=== PATIENT | female | born 1955 | race Caucasian/White ===

== ENCOUNTER 2017-07-08 08:47 | Emergency (ER) | payer OTHER ==
[2017-07-08] MEDS ORDERED: ONDANSETRON HCL IV 4 MG/2 ML VIAL IV ONE (09:01)
[2017-07-08] MEDS ORDERED: 0.9 % SODIUM CHLORIDE 1,000 ML BAG IV ONE ×2 (09:01→09:43)
--- NOTE | 2017-07-08 09:05 | Emergency Department Record ---
History of Present Illness - General Chief complaint: Female Urogenital Problem Stated complaint: UTI, WEAK, NAUSEA Time Seen by Provider: 07/08/17 08:53 Source: Patient Mode of Arrival: Ambulatory Limitations: No limitations - History of Present Illness Initial comments: The patient is here due to a multitude of complaints. She has had weakness and a cough with nausea for 2 weeks. Now she feels like she has a UTI due to not urinating well for the last 3 days. Additionally she states she has a groin yeast infection. There is no reported fever, chills, back pain, sputum production, or diarrhea but she has had minimal vomiting. MD Complaint: Other Onset/Timin -: Week(s) Improves with: None Worsens with: None Patient : No Associated Symptoms: Dysuria, Loss of appetite, Nausea/vomiting - Related Data Home Medications Medication Instructions Recorded Confirmed Last Taken Amlodipine Besylate 5 mg PO DAILY 07/08/17 07/08/17 Unknown Calcium Carbonate/Vitamin D3 2 each PO DAILY 07/08/17 07/08/17 Unknown [Calcium 600 + Vit D Tablet] Cholecalciferol (Vitamin D3) 50,000 unit PO ASDIR 07/08/17 07/08/17 Unknown [Vitamin D] Diclofenac Sodium [Pennsaid] 2 gm TP DAILY 07/08/17 07/08/17 Unknown Duloxetine HCl [Cymbalta] 30 mg PO DAILY 07/08/17 07/08/17 Unknown Golimumab [Simponi] 50 mg SQ ASDIR 07/08/17 07/08/17 Unknown Latanoprost 0.005% Opth Jo 2.5 ml OP ASDIR 07/08/17 07/08/17 Unknown [Xalatan] Leflunomide [Arava] 20 mg PO DAILY 07/08/17 07/08/17 Unknown Lisinopril 40 mg PO DAILY 07/08/17 07/08/17 Unknown Melatonin 10 mg PO QHS 07/08/17 07/08/17 Unknown Metoprolol Tartrate 50 mg PO BID 07/08/17 07/08/17 Unknown Prednisone [Prednisone 10Mg] 10 mg PO DAILY 07/08/17 07/08/17 Unknown Zoledronic Acid/Mannitol&Water 5 mg IV ASDIR 07/08/17 07/08/17 Unknown [Reclast] Allergies Allergy/AdvReac Type Severity Reaction Status Date / Time codeine Allergy breaks out Verified 07/08/17 08:53 and itching Penicillins Allergy breaks out Verified 07/08/17 08:53 and itching egg AdvReac stomach Verified 07/08/17 08:53 pains Travel Screening - Travel/Exposure Within Last 30 Days Have you traveled within the last 30 days?: No Review of Systems Constitutional: Reports: Malaise. Denies: Chills, Fever Eyes: Denies: Eye discharge ENT: Reports: Congestion Respiratory: Reports: Cough. Denies: Dyspnea Past Medical History - SOCIAL HISTORY Smoking Status: Former smoker Alcohol Use: None Drug Use: None - RESPIRATORY Hx Respiratory Disorders: No - CARDIOVASCULAR Hx Cardio Disorders: Yes Hx Hypertension: Yes - NEURO Hx Neuro Disorders: No - GI Hx GI Disorders: No - Hx Genitourinary Disorders: No - ENDOCRINE Hx Endocrine Disorders: No - MUSCULOSKELETAL Hx Musculoskeletal Disorders: Yes Comment:: RA - PSYCH Hx Psych Problems: Yes Hx Depression: Yes - HEMATOLOGY/ONCOLOGY Hx Hematology/Oncology Disorders: No Family Medical History Any Significant Family History?: No Physical Exam - General General Appearance: Alert, Oriented x3, Cooperative, No acute distress - Head Head exam: Atraumatic, Normocephalic, Normal inspection - Eye Eye exam: Normal appearance, PERRL - ENT Throat exam: Normal inspection. negative: Tonsillar erythema, Tonsillar exudate - Neck Neck exam: Normal inspection, Full ROM. negative: Tenderness - Respiratory Respiratory exam: Normal lung sounds bilaterally. negative: Respiratory distress - Cardiovascular Cardiovascular Exam: Regular rate, Normal rhythm, Normal heart sounds - GI/Abdominal GI/Abdominal exam: Soft, Normal bowel sounds. negative: Tenderness - exam: Other (There is a significant yeast dermatitis to the intertriginous folds in the groin and under the pannus.) - Extremities Extremities exam: Normal inspection, Full ROM, Normal capillary refill. negative: Tenderness - Neurological Neurological exam: Alert, Normal gait. negative: Abnormal gait, Motor sensory deficit Course Vital Signs 07/08/17 08:49 Temperature 97.4 F L Pulse Rate 110 H Respiratory 20 Rate Blood Pressure 109/59 Pulse Ox 96 - Reevaluation(s) Reevaluation #1: The patient is doing OK at this time. I did discuss the lab work with her and the problems with the kidney function. Due to the fact she is in renal failure she will need a larger hospital so she chose [facility]. I then did discuss the case with Dr. Vance and he did accept the patient. 07/08/17 10:33 Medical Decision Making - Data Complexity MDM Data: Labs Ordered and/or Reviewed, X-Ray Ordered and/or Reviewed, EKG Ordered and/or Reviewed - Lab Data Result diagrams: 07/08/17 09:10 07/08/17 09:10 - EKG Data -: EKG Interpreted by Me EKG: No Acute Changes - Radiology Data Radiology results: Report reviewed (CXR: Prob mild L lingula infiltrate.) Disposition Disposition: Transfer Disposition: Acute Care Hospital Transfer Transfer To: [facility] Reason For Transfer: Renal Failure Accepting Physician: Pinky Time Discussed w/Accepting Physician: 10:36 Condition: (2) Stable Forms: Patient Portal Access Time of Disposition: 10:36 Quality - Quality Measures Quality Measures: N/A - Blood Pressure Screening View Details: Yes Does Patient Have Any of the Following: No Blood Pressure Classification: Normal BP Reading Systolic Measurement: 109 Diastolic Measurement: 59 Screening for High Blood Pressure: < Normal BP, F/U Not Required > [[id number]]
[2017-07-08 09:24] LABS: HEMATOCRIT 36.7 % (35.0-47.0); HEMOGLOBIN 12.6 gm/dl (11.6-16.0); MEAN CELL VOLUME 88.2 fl (81-97); MEAN CORPUSCULAR HEMOGLOBIN 30.3 pg (27-33); MEAN CORPUSCULAR HGB CONC 34.3 g/dl (32-36); MEAN PLATELET VOLUME 10.7 fl (7.4-10.4); PLATELET COUNT 232 K/uL (130-400); RED BLOOD COUNT 4.16 M/uL (3.80-5.40); RED CELL DISTRIBUTION WIDTH 14.9 % (11.5-14.5); WHITE BLOOD COUNT W/O DIFF 10.3 K/uL (4.2-12.2)
[2017-07-08 09:35] LABS: PLATELET ESTIMATE NORMAL (NORMAL)
[2017-07-08 09:44] LABS: ALBUMIN 3.6 g/dL (4.0-5.0); BILIRUBIN,DIRECT 0.4 mg/dL (0-0.3); BILIRUBIN,TOTAL 0.6 mg/dL (0.2-1.0); CREATININE 15.6 mg/dL (0.5-0.9); TOTAL PROTEIN 7.7 g/dL (6.6-8.7)
[2017-07-08] MEDS ORDERED: AZITHROMYCIN 500 MG in 0.9 % SODIUM CHLORIDE 250ML 250 ML IVPB ONE (10:05)
[2017-07-08] MEDS ORDERED: NYSTATIN 15 GM TUBE TOP PRN (10:35)
[2017-07-08 10:50] LABS: INFLUENZA A NEGATIVE (NEGATIVE); INFLUENZA B NEGATIVE (NEGATIVE)
[2017-07-08] MEDS ORDERED: 0.9 % SODIUM CHLORIDE 1000ML 1,000 ML IV ONE (11:29)
--- NOTE | 2017-07-09 08:23 | RADIOLOGY REPORT ---
EXAM: CHEST, TWO VIEWS HISTORY: COUGH, WEAKNESS FOR TWO WEEKS. TECHNIQUE: PA and lateral views of the chest were obtained. Comparison: None. FINDINGS: The heart size is normal. Mild thoracic dextroscoliosis. Apical pleural thickening bilaterally. Particularly on the lateral view there does appear to be a small amount of infiltrate overlying the heart probably in the lingula although somewhat difficult to see on the frontal view. No pleural effusion or pneumothorax evident. IMPRESSION: 1. MILD THORACIC DEXTROSCOLIOSIS AND THORACOLUMBAR LEVOSCOLIOSIS. 2. APICAL PLEURAL THICKENING BILATERALLY. 3. THERE IS PROBABLY A SMALL AMOUNT OF INFILTRATE IN THE [place] BEST SEEN ON THE LATERAL VIEW. FOLLOW-UP FILMS AFTER THERAPY SUGGESTED TO DEMONSTRATE CLEARING. JOB NUMBER: [id number] MTDD
== END 2017-07-08 12:04 | disposition short-term general hospital (02) ==
LOC: ER 08:47
DX: N17.9 Acute kidney failure, unspecified (principal); R53.1 Weakness; R05 Cough; R30.0 Dysuria; R11.2 Nausea with vomiting, unspecified; B37.2 Candidiasis of skin and nail; I10 Essential (primary) hypertension; Z87.891 Personal history of nicotine dependence; R91.8 Other nonspecific abnormal finding of lung field
CPT/HCPCS: 99285 ×2; 96374; 96361; 83690; 80076; 86140; 80048; 87400; 85027; 71046; 93005; 93010; J2405; J0456; J7030; J7050